=== PATIENT | male | born 1935 | race Caucasian/White ===

== ENCOUNTER 2016-05-29 01:50 | Inpatient (IN) | payer MEDICARE ==
[2016-05-29] MEDS ORDERED: IBUPROFEN 400 MG TABLET PO ONE (02:10)
[2016-05-29 02:12] LABS: BASOPHILS % 0.2 (0.0-1.5); LYMPHOCYTES # 0.6 # k/uL (0.6-4.0); MEAN CORPUSCULAR HEMOGLOBIN 32.4 pg (28.0-34.0); MONOCYTES # 0.6 # k/uL (0.0-0.9); MONOCYTES % 7.2 % (0.0-11.0); NEUTROPHILS # 6.6 # k/uL (1.4-7.7)
[2016-05-29 02:22] LABS: APPEARANCE,URINE Cloudy (CLEAR); COLOR,URINE Yellow (YELLOW); OCCULT BLOOD,URINE 2+ (NEGATIVE); UROBILINOGEN URINE 0.2 Eu (0.2-1.0)
[2016-05-29 02:26] LABS: eGFR (African) > 60; eGFR (Non-African) 52
--- NOTE | 2016-05-29 03:22 | ED Physician Documentation ---
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 falling and more confused, running fever Onset: continues in ED Duration: sudden onset Last known Well Date: 05/28/16 Last Known Well Time: 20:00 Last known Well Code/Unknown Code: Unknown Character of Altered Mental Status: confused Context: group home resident Cognition is Usually: poor alertness Gait is Usually: walks w/ assistance only Associated Symptoms: other (fever, falling) Further Comments: no - ROS EYES/ENT: none CVS/RESP: none GI/: none MS/SKIN/LYMPH: none NEURO/PSYCH: none - PAST HX Past History: dementia, other (gerdf) Other History: CHF, A-Fib, hyperlipidemia, other (bph) Surgeries/Procedures: none Immunizations: referred to PCP Allergies/Adverse Reactions: Allergies Allergy/AdvReac Type Severity Reaction Status Date / Time No Known Allergies Allergy Verified 05/29/16 02:37 Home Medications: Ambulatory Orders Medication Instructions Recorded Atorvastatin Calcium 80 mg PO HS 03/16/16 Digoxin [Lanoxin] 125 mcg PO [id number] #90 tablet 03/25/16 Pantoprazole Sodium [Protonix] 40 mg PO 0700 04/03/16 Cholecalciferol (Vitamin D3) 1,000 unit PO D 05/29/16 [Vitamin D3] Finasteride [Proscar] 5 mg PO HS 05/29/16 Fluticasone Propionate [Flovent 50 mcg IH AM 05/29/16 Diskus] Furosemide [Lasix] 40 mg PO AM 05/29/16 Haloperidol 1 mg PO AM 05/29/16 Haloperidol 1 mg PO HS 05/29/16 QUEtiapine FUMARATE [Seroquel] 25 mg PO BID 05/29/16 Selenium 50 mcg PO D 05/29/16 Tamsulosin HCl [Flomax] 0.4 mg PO HS 05/29/16 Vitamin E 400 unit PO D 05/29/16 - SOCIAL HX Smoking History: non-smoker Alcohol Use: none Drug Use: none - FAMILY HX Family History: no significant history - VITAL SIGNS Vital Signs: Vital Signs Temp Pulse Resp BP Pulse Ox 101 F H 90 18 133/67 99 05/29/16 01:58 05/29/16 01:58 05/29/16 01:58 05/29/16 01:58 05/29/16 01:58 - REVIEWED ASSESSMENTS Nursing Assessment Reviewed: Yes Vitals Reviewed: Yes Progress - Results/Orders Results/Orders: cbc, cmp, bnp, ua ordered - Progress Progress: pt. stable entire time in er Critical Care Note - Critical Care Note Total Time (mins): 0 ED Results Lab/Radiology - Lab Results Lab Results: Lab Results 05/29/16 05/29/16 05/29/16 02:15 02:05 02:04 WBC RBC Hgb Hct MCV MCH MCHC RDW Plt Count Neut % (Auto) Lymph % (Auto) [place] % (Auto) Eos % (Auto) Baso % (Auto) Neut # Lymph # [place] # Eos # Baso # Reactive Lymphs % Reactive Lymphs # Sodium 139 mmol/L mmol/L (136-145) Potassium 4.2 mmol/L mmol/L (3.5-5.0) Chloride 105 mmol/L mmol/L (98-110) Carbon Dioxide 24 mmol/L mmol/L (20-32) BUN 20 mg/dL mg/dL (10-26) Creatinine 1.4 mg/dL mg/dL (0.4-1.5) Est GFR ( Amer) > 60 (60 - ) Est GFR (Non-Af Amer) 52 L (60 - ) Glucose 108 mg/dL H mg/dL (70-99) Calcium 9.1 mg/dL mg/dL (8.5-10.5) Total Bilirubin 0.4 mg/dL mg/dL (0.2-1.2) AST 14 U/L U/L (0-41) ALT 8 U/L U/L (0-45) Alkaline Phosphatase 79 U/L U/L (46-116) NT-Pro-B Natriuret Pep 3221.3 pg/mL H pg/mL (15.0-450.0) Total Protein 7.1 g/dL g/dL (6.0-8.5) Albumin 3.5 g/dL g/dL (3.0-5.5) Urine Color Yellow (YELLOW) Urine Appearance Cloudy (CLEAR) Urine pH 6.0 (5.0 - 8.0) Ur Specific [place] 1.010 (1.010-1.030) Urine Protein 2+ mg/dL H mg/dL (NEGATIVE) Urine Ketones Negative mg/dL mg/dL (NEGATIVE) Urine Occult Blood 2+ H (NEGATIVE) Urine Nitrite Negative (NEGATIVE) Urine Bilirubin Negative (NEGATIVE) Urine Urobilinogen 0.2 Eu Eu (0.2-1.0) Ur Leukocyte Esterase 3+ H (NEGATIVE) Urine RBC 5-10 H (0-2 HPF) Urine WBC 50-99 H (0-5 HPF) Urine WBC Clumps Present H (NEGATIVE) Ur Squamous Epith Cells Few (NEG-FEW) Urine Bacteria Moderate H (NEGATIVE) Hyaline Casts 0-2 (0-2) Urine Glucose Negative mg/dL mg/dL (NEGATIVE) 05/29/16 02:04 WBC 8.10 K/ul K/ul (4.00-12.00) RBC 2.51 M/ul L M/ul (3.90-5.20) Hgb 8.1 g/dL L g/dL (12.0-18.0) Hct 25.1 % L % (37.0-53.0) MCV 100.2 fl H fl (80.0-100.0) MCH 32.4 pg pg (28.0-34.0) MCHC 32.4 g/dL g/dL (30.0-36.0) RDW 15.0 % H % (11.3-14.3) Plt Count 190 K/mm3 K/mm3 (130-400) Neut % (Auto) 81.9 % H % (39.0-79.0) Lymph % (Auto) 7.9 % L % (16.0-50.0) [place] % (Auto) 7.2 % % (0.0-11.0) Eos % (Auto) 1.0 % % (0.0-6.8) Baso % (Auto) 0.2 (0.0-1.5) Neut # 6.6 # k/uL # k/uL (1.4-7.7) Lymph # 0.6 # k/uL # k/uL (0.6-4.0) [place] # 0.6 # k/uL # k/uL (0.0-0.9) Eos # 0.1 # k/uL # k/uL (0.0-0.6) Baso # 0.0 # k/uL # k/uL (0.0-0.5) Reactive Lymphs % 1.9 % % (0.0-5.0) Reactive Lymphs # 0.2 # k/uL # k/uL (0.0-0.8) Sodium Potassium Chloride Carbon Dioxide BUN Creatinine Est GFR ( Amer) Est GFR (Non-Af Amer) Glucose Calcium Total Bilirubin AST ALT Alkaline Phosphatase NT-Pro-B Natriuret Pep Total Protein Albumin Urine Color Urine Appearance Urine pH Ur Specific [place] Urine Protein Urine Ketones Urine Occult Blood Urine Nitrite Urine Bilirubin Urine Urobilinogen Ur Leukocyte Esterase Urine RBC Urine WBC Urine WBC Clumps Ur Squamous Epith Cells Urine Bacteria Hyaline Casts Urine Glucose - Radiology Radiology Impressions: none ordered - Orders Orders: ED Orders Category Date Time Status BLOOD CULTURE Routine Lab 05/29/16 02:04 Received BNP [NT-proBNP] Routine Lab 05/29/16 02:05 Completed CBC/PLATELET/DIFF Routine Lab 05/29/16 02:04 Completed CMP Routine Lab 05/29/16 02:04 Completed URINALYSIS Routine Lab 05/29/16 02:15 Completed URINE CULTURE Routine Lab 05/29/16 02:15 Received Ibuprofen [Advil] Med 05/29/16 02:10 Discontinued 800 mg PO NOW ONE Transfer Routine Transfer 05/29/16 Ordered Altered Mental Status Physical - Physical Exam General Appearance: mild distress, other (lethargic) Neuro/Psych: none eyes open, slow to respond nml as tested Peripheral Exam: motor nml, sensation nml, reflexes nml HEENT: R[place], EOM's intact, no apparent trauma, ENT inspection nml, oropharynx nml, airway intact Neck: normal inspection, thyroid normal, supple Respiratory: no resp distress, chest non-tender, breath sounds normal CVS: equal pulses, no murmur, no gallop, PMI nml, no JVD, irregularly irregular rhy Abdomen: non-tender, no organomegaly Skin: warm/dry, normal color Extremities: non-tender, normal range of motion, no evidence of injury, edema (3 /5 le's) Discharge Clincal Impression: Sepsis secondary to UTI Home Medications: Ambulatory Orders Atorvastatin Calcium 80 mg PO HS 03/16/16 Digoxin [Lanoxin] 125 mcg PO [id number] #90 tablet 03/25/16 Pantoprazole Sodium [Protonix] 40 mg PO 0700 04/03/16 Cholecalciferol (Vitamin D3) [Vitamin D3] 1,000 unit PO D 05/29/16 Finasteride [Proscar] 5 mg PO HS 05/29/16 Fluticasone Propionate [Flovent Diskus] 50 mcg IH AM 05/29/16 Furosemide [Lasix] 40 mg PO AM 05/29/16 Haloperidol 1 mg PO AM 05/29/16 Haloperidol 1 mg PO HS 05/29/16 QUEtiapine FUMARATE [Seroquel] 25 mg PO BID 05/29/16 Selenium 50 mcg PO D 05/29/16 Tamsulosin HCl [Flomax] 0.4 mg PO HS 05/29/16 Vitamin E 400 unit PO D 05/29/16 Condition: Stable Disposition: 09 ADMITTED INPATIENT Decision to Admit: [id number] Decision Time: 02:30
[2016-05-29] MEDS ORDERED: LEVOFLOXACIN 500MG/D5W 100ML 100 ML IV ONE ×2 (03:46→14:09)
[2016-05-29] MEDS: LEVOFLOXACIN 500MG/D5W 100ML 500 MG in PREMIX BAG 1 BAG IV SCH ×2 (03:50→14:10)
[2016-05-29] MEDS: ENOXAPARIN SODIUM 30 MG/0.3 ML DISP.SYRIN SQ SCH (03:54)
[2016-05-29 04:09] VITALS: BMI 26.3
[2016-05-29] MEDS ORDERED: PANTOPRAZOLE SODIUM 40 MG TABLET ONE ×2 (04:09→19:41)
[2016-05-29] MEDS: 0.9 % SODIUM CHLORIDE 1,000 ML IV SCH ×2 (05:35→15:58)
[2016-05-29 06:18] LABS: BASOPHILS % 0.2 (0.0-1.5); EOSINOPHILS % 0.8 % (0.0-6.8); LYMPHOCYTES # 0.7 # k/uL (0.6-4.0); MEAN CORPUSCULAR HEMOGLOBIN 33.1 pg (28.0-34.0); MONOCYTES # 0.6 # k/uL (0.0-0.9); MONOCYTES % 8.3 % (0.0-11.0); NEUTROPHILS # 5.5 # k/uL (1.4-7.7)
[2016-05-29] MEDS ORDERED: PANTOPRAZOLE SODIUM 40 MG TABLET PO SCH (07:00)
[2016-05-29] MEDS: FUROSEMIDE 40 MG TABLET PO SCH (08:54)
[2016-05-29] MEDS: QUEtiapine FUMARATE 25 MG TABLET PO SCH ×2 (08:55→19:53)
[2016-05-29] MEDS ORDERED: HALOPERIDOL LACTATE 5 MG/ML VIAL IM SCH (09:00)
[2016-05-29] MEDS: BUDESONIDE 0.5MG/2ML AMPUL.NEB NEB SCH ×2 (11:16→23:47)
--- NOTE | 2016-05-29 12:42 | History and Physical Report ---
History of Present Illnes - History of Present Illness Reason for Visit: increasing confusion with fever History of Present Illness: 81yo white male with recurrent UTIs. Has had urospesis several times. Patient has had a chronic indwelling paez cath at one time but this has been removed. Patient has a. History of increasing confusion and lethargy. Patient was found to have a low fever. Initially patient was felt to have a viral infection. On the evening of admission patient developed fever up to 102. Patient was subsequently taken for further evaluation. It was felt that the patient was possibly developing another urinary tract infection. Patient was subsequently admitted to the hospital for further care and evaluation. 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 denies: Cholesterol Pneumonia Vaccine: Yes Resuscitation Status: Resusciation Status Resuscitation Status Do Not Resuscitate - Unable to Obtain History Unable to Obtain: No Review of Systems - Review of Systems Constitutional: Fever, Chills, Weakness. negative: Malaise Eyes: negative: pain, vision change ENT: negative: Ear Pain, Ear Discharge, Nose Pain, Nose Discharge, Nose Congestion, Mouth Pain, Mouth Swelling, Throat Pain, Throat Swelling Respiratory: negative: Cough, Dry, Shortness of Breath, Hemoptysis, SOB with Excertion, Pleuritic Pain, Sputum, Wheezing Cardiovascular: negative: Chest Pain, Palpitations, Orthopnea, Paroxysmal Noc. Dyspnea, Light Headedness Gastrointestinal: Nausea, Abdominal Pain (mild). negative: Vomiting, Diarrhea, Constipation, Melena, Hematochezia Genitourinary: Dysuria, Frequency, Retention (hx of). negative: Incontinence, Hematuria Musculoskeletal: Back Pain. negative: Neck Pain Skin: negative: Rash, Lesions Neurological: Weakness, Confusion (at base line). negative: Numbness, Incoordination, Change in Speech - Medications/Allergies Allergies/Adverse Reactions: Allergies Allergy/AdvReac Type Severity Reaction Status Date / Time No Known Allergies Allergy Verified 05/29/16 02:37 Home Medications: Home Medications Cholecalciferol (Vitamin D3) [Vitamin D3] 1,000 unit PO D 05/29/16 Finasteride [Proscar] 5 mg PO HS 05/29/16 Fluticasone Propionate [Flovent Diskus] 50 mcg IH AM 05/29/16 Furosemide [Lasix] 40 mg PO AM 05/29/16 Haloperidol 1 mg PO AM 05/29/16 Haloperidol 1 mg PO HS 05/29/16 QUEtiapine FUMARATE [Seroquel] 25 mg PO BID 05/29/16 Selenium 50 mcg PO D 05/29/16 Tamsulosin HCl [Flomax] 0.4 mg PO HS 05/29/16 Vitamin E 400 unit PO D 05/29/16 Current Inpatient Medications: Current Inpatient Medications Atorvastatin Calcium (Lipitor) 80 mg PO HS [facility] Budesonide (Pulmicort) 0.5 mg NEB BID [facility] Last Admin: 05/29/16 11:16 Dose: 0.5 mg Digoxin (Lanoxin) 125 mcg PO [id number] [facility] Enoxaparin Sodium (Lovenox) 30 mg SQ QD [facility] Stop: 06/11/16 03:41 Last Admin: 05/29/16 03:54 Dose: 30 mg Finasteride (Proscar) 5 mg PO HS [facility] Furosemide (Lasix) 40 mg PO AM [facility] Last Admin: 05/29/16 08:54 Dose: 40 mg Sodium Chloride (Normal Saline) 1,000 mls @ 42 mls/hr IV Q10H [facility] Last Admin: 05/29/16 05:35 Dose: Not Given Levofloxacin/Dextrose 500 mg/ (PREMIX BAG) 100 mls @ 100 mls/hr IV DAILY [facility] Last Admin: 05/29/16 03:50 Dose: 100 mls/hr Pantoprazole Sodium (Protonix) 40 mg PO ACB [facility] Quetiapine Fumarate (Seroquel) 25 mg PO BID [facility] Last Admin: 05/29/16 08:55 Dose: 25 mg Tamsulosin HCl (Flomax) 0.4 mg PO [facility] Exam - Exam Vital Signs: Vital Signs (72 hours) 05/29/16 05/29/16 05/29/16 03:40 04:20 05:00 Temperature 99.1 F Pulse Rate 91 H 91 H 78 Pulse Rate [ 91 H Left Pulse ox] Respiratory 16 Rate Blood Pressure 133/67 [Left Arm] Blood Pressure 111/53 [Right Arm] O2 Sat by Pulse 96 Oximetry 05/29/16 05/29/16 05/29/16 05:51 06:00 07:00 Temperature 98.1 F Pulse Rate 79 83 Pulse Rate [ 90 Left Pulse ox] Respiratory 18 Rate Blood Pressure [Left Arm] Blood Pressure 123/64 [Right Arm] O2 Sat by Pulse 96 Oximetry 05/29/16 08:00 Temperature Pulse Rate 83 Pulse Rate [ Left Pulse ox] Respiratory Rate Blood Pressure [Left Arm] Blood Pressure [Right Arm] O2 Sat by Pulse Oximetry General: Alert, Oriented to Person, Oriented to Place, Cooperative, Mild distress. No: Oriented to Time HEENT: Atraumatic, PERRLA, Dentition Normal, Decreased Hearing Acuity. No: Mouth Mucous membr. moist/[place], Nose Mucous membr. moist/[place] Neck: Normal Range of Motion. No: Stridor, Rigidity, Lymphadenopathy Carotids: WNL Thyroid: WNL Lungs: Clear to auscultation, Normal air movement, Speaks full Sentences. No: Respiratory Distress, Wheezes, Rales, Rhonchi Cardiovascular: Normal S1, Normal S2, Murmur (grade 2/6), Irregularly Irregular. No: Gallops, Rubs Murmur: Systolic Murmur Heart Murmur Grade: II Abdomen: Normal bowel sounds, Soft, No tenderness, No hepatospenomegaly, No masses. No: Distended Integumentary: Normal, [place], Warm, Dry Extremities: No clubbing, No cyanosis, Other (2 plus) Neurological: Normal speech, Strength Equal Bilat, Normal tone, Sensation intact , Cranial nerves 3-12 NL, Reflexes 2+ Psych/Mental Status: Mood NL. No: Mental status NL (stable at baseline), Intact Judgment - Laboratory Results Laboratory Results: Laboratory Results 05/29/16 05/29/16 06:10 06:10 WBC 7.00 RBC 2.30 L Hgb 7.6 L Hct 23.1 L MCV 100.5 H MCH 33.1 MCHC 32.9 RDW 15.0 H Plt Count 182 Neut % (Auto) 78.2 Lymph % (Auto) 10.3 L [place] % (Auto) 8.3 Eos % (Auto) 0.8 Baso % (Auto) 0.2 Neut # 5.5 Lymph # 0.7 [place] # 0.6 Eos # 0.0 Baso # 0.0 Reactive Lymphs % 2.3 Reactive Lymphs # 0.2 Sodium 137 Potassium 4.0 Chloride 107 Carbon Dioxide 24 BUN 22 Creatinine 1.6 H Estimated Creat Clear 44 Est GFR ( Amer) 53 L Est GFR (Non-Af Amer) 44 L Glucose 122 H Calcium 8.3 L Assessment/Plan - Assessment/Plan (1) Sepsis secondary to UTI Status: Acute Current Visit: Yes Assessment: patient started on antibiotic of levofloxacin, blood and urine cultures done (2) A-fib Status: Chronic Current Visit: No Qualifiers: Atrial fibrillation type: chronic Qualified Code(s): I48.2 - Chronic atrial fibrillation Comment: stable Assessment: continue home med (3) BPH (benign prostatic hyperplasia) Status: Chronic Current Visit: No Assessment: continue home med (4) Diabetes type 2, controlled Status: Acute Current Visit: No Qualifiers: Diabetes mellitus complication status: without complication 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 Qualified Code(s): E11.9 - Type 2 diabetes mellitus without complications Assessment: diet controlled, stable (5) Essential hypertension Status: Acute Current Visit: No Assessment: stable continue with home meds (6) Anemia Status: Chronic Current Visit: No Qualifiers: Anemia type: other cause Other causes of anemia: chronic disease, other Qualified Code(s): D63.8 - Anemia in other chronic diseases classified elsewhere Assessment: will monitor Hgb, 8.1 on admission, now 7.6 (7) Chronic kidney disease Status: Acute Current Visit: Yes Assessment: monitor Creatinine and BUN VTE Assessment - RISK FACTOR SCORE VTE RISK FACTOR SCORES: AGE OVER 60 YEARS, ANTICIPATED BED CONFINEMENT OR IMMOBILIZATION > 24 HOURS - RISK VTE MODERATE RISK: SCORE OF 2 (RISK PROXIMAL DVT 2-4%) PROPHYAXIS NEEDED
[2016-05-29] MEDS: DIGOXIN 125 MCG TABLET PO SCH (14:08)
[2016-05-29] MEDS ORDERED: SALINE FLUSH 10 ML DISP.SYRIN IVF ONE (16:27)
[2016-05-29] MEDS: METOPROLOL TARTRATE 50 MG TABLET PO SCH (17:21)
[2016-05-29] MEDS: FINASTERIDE 5 MG TABLET PO SCH (19:53)
[2016-05-29] MEDS: ATORVASTATIN CALCIUM 80 MG TABLET PO SCH (19:54)
[2016-05-29] MEDS: HALOPERIDOL 1 MG TABLET PO SCH (19:54)
[2016-05-29] MEDS: TAMSULOSIN HCL 0.4 MG CAP.ER.24H PO SCH (19:55)
[2016-05-29] MEDS: ACETAMINOPHEN 325 MG TABLET PO PRN (20:10)
--- NOTE | 2016-05-29 23:22 | Diagnostic Imaging Report ---
[facility] [id number] [facility].[address] [address] ~ ~ ~ ~ Report Submission Date: May 29, 2016 4:48:27 PM RN MATERNAL CHILD Patient ~ Study Name: GISSELLE LAZARO ~ Date: May 29, 2016 4:19:53 PM RN MATERNAL CHILD ~ Modality Type: CR Gender: M ~ Description: CHEST : 34 ~ Institution: [facility] Physician: SANDIE EPSTEIN ~ ~ ~ ~ Portable chest History: Tachycardia and congestive heart failure Findings: Bibasilar reticular opacities and aortic atherosclerotic calcification are observed. Heart size is normal. No significant pleural effusions are observed. Impression: Bibasilar reticular opacities may represent atelectasis, edema, or bronchitis. ~ Electronically signed on May 29, 2016 4:48:27 PM RN MATERNAL CHILD by: Segundo WHITE
[2016-05-30] MEDS: ACETAMINOPHEN 325 MG TABLET PO PRN (04:00)
[2016-05-30] MEDS: ENOXAPARIN SODIUM 30 MG/0.3 ML DISP.SYRIN SQ SCH (05:24)
[2016-05-30] MEDS: PANTOPRAZOLE SODIUM 40 MG TABLET PO SCH (05:24)
[2016-05-30 06:38] LABS: BASOPHILS % 0.3 (0.0-1.5); EOSINOPHILS % 1.1 % (0.0-6.8); LYMPHOCYTES # 0.6 # k/uL (0.6-4.0); MEAN CORPUSCULAR HEMOGLOBIN 32.8 pg (28.0-34.0); MONOCYTES # 0.5 # k/uL (0.0-0.9); MONOCYTES % 7.1 % (0.0-11.0); NEUTROPHILS # 5.7 # k/uL (1.4-7.7)
[2016-05-30] MEDS: 0.9 % SODIUM CHLORIDE 1,000 ML IV SCH ×3 (07:33→16:55)
[2016-05-30] MEDS ORDERED: ACETAMINOPHEN 325 MG TABLET PO ONE (08:28)
[2016-05-30] MEDS ORDERED: diphenhydrAMINE HCL 25 MG TABLET PO ONE (08:29)
[2016-05-30] MEDS: HALOPERIDOL 1 MG TABLET PO SCH ×2 (09:43→20:53)
[2016-05-30] MEDS: METOPROLOL TARTRATE 50 MG TABLET PO SCH ×2 (09:44→20:54)
[2016-05-30] MEDS: QUEtiapine FUMARATE 25 MG TABLET PO SCH ×2 (09:44→20:52)
[2016-05-30] MEDS: FUROSEMIDE 40 MG TABLET PO SCH (09:44)
[2016-05-30] MEDS ORDERED: LEVOFLOXACIN 500MG/D5W 100ML 100 ML IV ONE (09:46)
[2016-05-30] MEDS: LEVOFLOXACIN 500MG/D5W 100ML 500 MG in PREMIX BAG 1 BAG IV SCH (09:47)
[2016-05-30] MEDS ORDERED: 0.9 % SODIUM CHLORIDE 250 ML IV ONE (11:59)
[2016-05-30] MEDS: DIGOXIN 125 MCG TABLET PO SCH (12:08)
[2016-05-30] MEDS ORDERED: SALINE FLUSH 10 ML DISP.SYRIN IVF ONE (14:19)
[2016-05-30] MEDS: BUDESONIDE 0.5MG/2ML AMPUL.NEB NEB SCH ×2 (19:41→21:49)
[2016-05-30] MEDS: TAMSULOSIN HCL 0.4 MG CAP.ER.24H PO SCH (20:53)
[2016-05-30] MEDS: ATORVASTATIN CALCIUM 80 MG TABLET PO SCH (20:54)
[2016-05-30] MEDS: FINASTERIDE 5 MG TABLET PO SCH (20:54)
--- NOTE | 2016-05-30 22:10 | Inpatient Progress Note ---
Subjective - Required Recertification Statement I anticipate X number of days because-include discharge plan: 2 days - Review of Systems Events since last encounter: Patient had a fever up to 101.8. Patient developed a rapid ventricular response related to his atrial flutter. Patient was given metoprolol 50 mg with improvement of his rate. Patient states that at this time, he seems to be doing well. Patient does not voice any complaints. Appetite has been good. Patient denies any pain. Objective - Exam Vitals and I&O: Vital Signs Temp 98.5 F 05/30/16 14:00 Pulse 94 H 05/30/16 18:00 Resp 18 05/30/16 14:00 BP 120/60 05/30/16 14:00 Pulse Ox 97 05/30/16 15:00 Intake & Output 05/29/16 05/30/16 05/30/16 23:59 11:59 23:59 Intake Total 078 916 0581 Balance 365 786 0440 Weight 87.997 kg 87.2 kg Intake: IV 382 Left Forearm 382 Oral 50 240 1280 Other: Voiding Method Diaper Diaper # Voids 3 2 # Bowel Movements 0 General: Alert, Oriented to Person, Cooperative. No: Oriented to Place, Oriented to Time Neck: Supple, No JVD Lungs: Clear to auscultation, Normal air movement, Speaks full Sentences. No: Wheezes, Rales Cardiovascular: Irregularly Irregular Abdomen: Normal bowel sounds, Soft, No tenderness Extremities: No clubbing, No cyanosis Skin: Normal, [place], Warm, Dry Neurological: Normal gait Psych/Mental Status: No: Mental status NL (at baseline) - Results Results: Laboratory Results WBC 7.10 K/ul (4.00-12.00) 05/30/16 06:30 RBC 2.27 M/ul (3.90-5.20) L 05/30/16 06:30 Hgb 7.4 g/dL (12.0-18.0) L 05/30/16 06:30 Hct 22.5 % (37.0-53.0) L 05/30/16 06:30 MCV 99.5 fl (80.0-100.0) 05/30/16 06:30 MCH 32.8 pg (28.0-34.0) 05/30/16 06:30 MCHC 33.0 g/dL (30.0-36.0) 05/30/16 06:30 RDW 15.0 % (11.3-14.3) H 05/30/16 06:30 Plt Count 192 K/mm3 (130-400) 05/30/16 06:30 Neut % (Auto) 80.9 % (39.0-79.0) H 05/30/16 06:30 Lymph % (Auto) 8.6 % (16.0-50.0) L 05/30/16 06:30 [place] % (Auto) 7.1 % (0.0-11.0) 05/30/16 06:30 Eos % (Auto) 1.1 % (0.0-6.8) 05/30/16 06:30 Baso % (Auto) 0.3 (0.0-1.5) 05/30/16 06:30 Neut # 5.7 # k/uL (1.4-7.7) 05/30/16 06:30 Lymph # 0.6 # k/uL (0.6-4.0) 05/30/16 06:30 [place] # 0.5 # k/uL (0.0-0.9) 05/30/16 06:30 Eos # 0.1 # k/uL (0.0-0.6) 05/30/16 06:30 Baso # 0.0 # k/uL (0.0-0.5) 05/30/16 06:30 Reactive Lymphs % 2.0 % (0.0-5.0) 05/30/16 06:30 Reactive Lymphs # 0.1 # k/uL (0.0-0.8) 05/30/16 06:30 Sodium 139 mmol/L (136-145) 05/30/16 06:30 Potassium 3.5 mmol/L (3.5-5.0) 05/30/16 06:30 Chloride 106 mmol/L (98-110) 05/30/16 06:30 Carbon Dioxide 25 mmol/L (20-32) 05/30/16 06:30 BUN 21 mg/dL (10-26) 05/30/16 06:30 Creatinine 1.5 mg/dL (0.4-1.5) 05/30/16 06:30 Estimated Creat Clear 46 05/30/16 06:30 Est GFR ( Amer) 58 (60-) L 05/30/16 06:30 Est GFR (Non-Af Amer) 48 (60-) L 05/30/16 06:30 Glucose 92 mg/dL (70-99) 05/30/16 06:30 Calcium 8.6 mg/dL (8.5-10.5) 05/30/16 06:30 Total Bilirubin 0.4 mg/dL (0.2-1.2) 05/30/16 06:30 AST 13 U/L (0-41) 05/30/16 06:30 ALT 8 U/L (0-45) 05/30/16 06:30 Alkaline Phosphatase 66 U/L (46-116) 05/30/16 06:30 NT-Pro-B Natriuret Pep 3221.3 pg/mL (15.0-450.0) H 05/29/16 02:05 Total Protein 6.1 g/dL (6.0-8.5) 05/30/16 06:30 Albumin 2.9 g/dL (3.0-5.5) L 05/30/16 06:30 Urine Color Yellow (YELLOW) 05/29/16 02:15 Urine Appearance Cloudy (CLEAR) 05/29/16 02:15 Urine pH 6.0 (5.0 - 8.0) 05/29/16 02:15 Ur Specific [place] 1.010 (1.010-1.030) 05/29/16 02:15 Urine Protein 2+ mg/dL (NEGATIVE) H 05/29/16 02:15 Urine Ketones Negative mg/dL (NEGATIVE) 05/29/16 02:15 Urine Occult Blood 2+ (NEGATIVE) H 05/29/16 02:15 Urine Nitrite Negative (NEGATIVE) 05/29/16 02:15 Urine Bilirubin Negative (NEGATIVE) 05/29/16 02:15 Urine Urobilinogen 0.2 Eu (0.2-1.0) 05/29/16 02:15 Ur Leukocyte Esterase 3+ (NEGATIVE) H 05/29/16 02:15 Urine RBC 5-10 (0-2 HPF) H 05/29/16 02:15 Urine WBC 50-99 (0-5 HPF) H 05/29/16 02:15 Urine WBC Clumps Present (NEGATIVE) H 05/29/16 02:15 Ur Squamous Epith Cells Few (NEG-FEW) 05/29/16 02:15 Urine Bacteria Moderate (NEGATIVE) H 05/29/16 02:15 Hyaline Casts 0-2 (0-2) 05/29/16 02:15 Urine Glucose Negative mg/dL (NEGATIVE) 05/29/16 02:15 Assessment/Plan - Assessment/Plan (1) Sepsis secondary to UTI Status: Acute Current Visit: Yes Assessment: Awaiting urine and blood cultures at that time. We'll continue with levofloxacin. (2) A-fib Status: Chronic Current Visit: No Qualifiers: Atrial fibrillation type: chronic Qualified Code(s): I48.2 - Chronic atrial fibrillation Comment: stable Assessment: Patient's rate appears to be well maintained at this time. We'll continue to monitor. (3) Essential hypertension Status: Acute Current Visit: No (4) Anemia Status: Chronic Current Visit: No Qualifiers: Anemia type: other cause Other causes of anemia: chronic disease, other Qualified Code(s): D63.8 - Anemia in other chronic diseases classified elsewhere Assessment: Patient's hemoglobin has dropped to 7.4. We'll go ahead and transfuse 1 unit packed RBCs (5) Chronic kidney disease Status: Acute Current Visit: Yes Qualifiers: Chronic kidney disease stage: stage 4 (severe) Qualified Code(s): N18.4 - Chronic kidney disease, stage 4 (severe)
[2016-05-31] MEDS: 0.9 % SODIUM CHLORIDE 1,000 ML IV SCH ×3 (03:29→15:40)
[2016-05-31] MEDS: ENOXAPARIN SODIUM 30 MG/0.3 ML DISP.SYRIN SQ SCH (05:44)
[2016-05-31] MEDS: PANTOPRAZOLE SODIUM 40 MG TABLET PO SCH (05:46)
[2016-05-31 06:44] LABS: BASOPHILS % 0.2 (0.0-1.5); EOSINOPHILS % 1.9 % (0.0-6.8); LYMPHOCYTES # 0.6 # k/uL (0.6-4.0); MEAN CORPUSCULAR HEMOGLOBIN 33.4 pg (28.0-34.0); MONOCYTES # 0.5 # k/uL (0.0-0.9); MONOCYTES % 7.5 % (0.0-11.0); NEUTROPHILS # 5.5 # k/uL (1.4-7.7)
[2016-05-31 06:59] LABS: eGFR (African) > 60; eGFR (Non-African) 52
[2016-05-31] MEDS: BUDESONIDE 0.5MG/2ML AMPUL.NEB NEB SCH (09:00)
[2016-05-31] MEDS: METOPROLOL TARTRATE 50 MG TABLET PO SCH ×2 (09:24→21:27)
[2016-05-31] MEDS: HALOPERIDOL 1 MG TABLET PO SCH ×2 (09:24→21:26)
[2016-05-31] MEDS: FUROSEMIDE 40 MG TABLET PO SCH (09:24)
[2016-05-31] MEDS: QUEtiapine FUMARATE 25 MG TABLET PO SCH ×2 (09:25→21:26)
[2016-05-31] MEDS ORDERED: LEVOFLOXACIN 500MG/D5W 100ML 100 ML IV ONE (09:26)
[2016-05-31] MEDS: LEVOFLOXACIN 500MG/D5W 100ML 500 MG in PREMIX BAG 1 BAG IV SCH (09:27)
[2016-05-31] MEDS: DIGOXIN 125 MCG TABLET PO SCH (12:59)
--- NOTE | 2016-05-31 20:20 | Inpatient Progress Note ---
Subjective - Required Recertification Statement I anticipate X number of days because-include discharge plan: 1 day - Review of Systems Events since last encounter: Patient does seem to be doing better. Voices no complaints at this time. No pain. denies nay chest pain or pressure. No urinary symptoms. Fever to 100.8 last noc. General: Denies: Chills Cardiovascular: Denies: Chest Pain, Palpitations, Orthopnea Gastrointestinal: Denies: Nausea, Vomiting, Abdominal Pain, Diarrhea, Constipation Genitourinary: Denies: Dysuria, Frequency, Incontinence Objective - Exam Vitals and I&O: Vital Signs Temp 98.1 F 05/31/16 14:00 Pulse 78 05/31/16 18:00 Resp 16 05/31/16 14:00 BP 112/87 05/31/16 14:00 Pulse Ox 95 05/31/16 18:00 Intake & Output 05/30/16 05/31/16 05/31/16 23:59 11:59 23:59 Intake Total 2120 1864 480 Balance 2120 1864 480 Weight 87.02 kg Intake: IV 1504 Left Forearm 1504 Oral 2120 360 480 Other: Voiding Method Incontinent Incontinent # Voids 3 3 General: Alert, Oriented to Person, Oriented to Place, Cooperative. No: Oriented to Time Neck: Supple, No JVD Lungs: Clear to auscultation, Normal air movement, Speaks full Sentences. No: Wheezes, Rales, Rhonchi Cardiovascular: Regular rate, Normal S1, Normal S2, No murmurs Abdomen: Normal bowel sounds, Soft, No tenderness, No masses Extremities: Other (mild edema) Skin: Normal, Kinney, Warm, Dry Psych/Mental Status: Mental status NL (at baseline), Mood NL. No: Intact Judgment - Results Results: Laboratory Results WBC 7.00 K/ul (4.00-12.00) 05/31/16 06:15 RBC 2.64 M/ul (3.90-5.20) L 05/31/16 06:15 Hgb 8.8 g/dL (12.0-18.0) L 05/31/16 06:15 Hct 26.1 % (37.0-53.0) L 05/31/16 06:15 MCV 98.7 fl (80.0-100.0) 05/31/16 06:15 MCH 33.4 pg (28.0-34.0) 05/31/16 06:15 MCHC 33.9 g/dL (30.0-36.0) 05/31/16 06:15 RDW 15.2 % (11.3-14.3) H 05/31/16 06:15 Plt Count 209 K/mm3 (130-400) 05/31/16 06:15 Neut % (Auto) 78.6 % (39.0-79.0) 05/31/16 06:15 Lymph % (Auto) 8.9 % (16.0-50.0) L 05/31/16 06:15 Person % (Auto) 7.5 % (0.0-11.0) 05/31/16 06:15 Eos % (Auto) 1.9 % (0.0-6.8) 05/31/16 06:15 Baso % (Auto) 0.2 (0.0-1.5) 05/31/16 06:15 Neut # 5.5 # k/uL (1.4-7.7) 05/31/16 06:15 Lymph # 0.6 # k/uL (0.6-4.0) 05/31/16 06:15 Person # 0.5 # k/uL (0.0-0.9) 05/31/16 06:15 Eos # 0.1 # k/uL (0.0-0.6) 05/31/16 06:15 Baso # 0.0 # k/uL (0.0-0.5) 05/31/16 06:15 Reactive Lymphs % 2.9 % (0.0-5.0) 05/31/16 06:15 Reactive Lymphs # 0.2 # k/uL (0.0-0.8) 05/31/16 06:15 Sodium 138 mmol/L (136-145) 05/31/16 06:15 Potassium 3.4 mmol/L (3.5-5.0) L 05/31/16 06:15 Chloride 109 mmol/L (98-110) 05/31/16 06:15 Carbon Dioxide 24 mmol/L (20-32) 05/31/16 06:15 BUN 20 mg/dL (10-26) 05/31/16 06:15 Creatinine 1.4 mg/dL (0.4-1.5) 05/31/16 06:15 Estimated Creat Clear 50 05/31/16 06:15 Est GFR ( Amer) > 60 (60-) 05/31/16 06:15 Est GFR (Non-Af Amer) 52 (60-) L 05/31/16 06:15 Glucose 88 mg/dL (70-99) 05/31/16 06:15 Calcium 8.7 mg/dL (8.5-10.5) 05/31/16 06:15 Total Bilirubin 0.4 mg/dL (0.2-1.2) 05/30/16 06:30 AST 13 U/L (0-41) 05/30/16 06:30 ALT 8 U/L (0-45) 05/30/16 06:30 Alkaline Phosphatase 66 U/L (46-116) 05/30/16 06:30 NT-Pro-B Natriuret Pep 3221.3 pg/mL (15.0-450.0) H 05/29/16 02:05 Total Protein 6.1 g/dL (6.0-8.5) 05/30/16 06:30 Albumin 2.9 g/dL (3.0-5.5) L 05/30/16 06:30 Urine Color Yellow (YELLOW) 05/29/16 02:15 Urine Appearance Cloudy (CLEAR) 05/29/16 02:15 Urine pH 6.0 (5.0 - 8.0) 05/29/16 02:15 Ur Specific Offerman 1.010 (1.010-1.030) 05/29/16 02:15 Urine Protein 2+ mg/dL (NEGATIVE) H 05/29/16 02:15 Urine Ketones Negative mg/dL (NEGATIVE) 05/29/16 02:15 Urine Occult Blood 2+ (NEGATIVE) H 05/29/16 02:15 Urine Nitrite Negative (NEGATIVE) 05/29/16 02:15 Urine Bilirubin Negative (NEGATIVE) 05/29/16 02:15 Urine Urobilinogen 0.2 Eu (0.2-1.0) 05/29/16 02:15 Ur Leukocyte Esterase 3+ (NEGATIVE) H 05/29/16 02:15 Urine RBC 5-10 (0-2 HPF) H 05/29/16 02:15 Urine WBC 50-99 (0-5 HPF) H 05/29/16 02:15 Urine WBC Clumps Present (NEGATIVE) H 05/29/16 02:15 Ur Squamous Epith Cells Few (NEG-FEW) 05/29/16 02:15 Urine Bacteria Moderate (NEGATIVE) H 05/29/16 02:15 Hyaline Casts 0-2 (0-2) 05/29/16 02:15 Urine Glucose Negative mg/dL (NEGATIVE) 05/29/16 02:15 Assessment/Plan - Assessment/Plan (1) Sepsis secondary to UTI Status: Acute Current Visit: Yes Assessment: Appears to be improving at this time. Urine culture shows bacteria sensitive to Levofloxacin (2) A-fib Status: Chronic Current Visit: No Qualifiers: Atrial fibrillation type: chronic Qualified Code(s): I48.2 - Chronic atrial fibrillation Comment: stable Assessment: well controlled response a this time (3) Essential hypertension Status: Acute Current Visit: No (4) Anemia Status: Chronic Current Visit: No Qualifiers: Anemia type: other cause Other causes of anemia: chronic disease, other Qualified Code(s): D63.8 - Anemia in other chronic diseases classified elsewhere Assessment: improved with transfusion. Hgb 8.8 (5) Chronic kidney disease Status: Acute Current Visit: Yes Qualifiers: Chronic kidney disease stage: stage 4 (severe) Qualified Code(s): N18.4 - Chronic kidney disease, stage 4 (severe) Assessment: stable
[2016-05-31] MEDS: TAMSULOSIN HCL 0.4 MG CAP.ER.24H PO SCH (21:26)
[2016-05-31] MEDS: ATORVASTATIN CALCIUM 80 MG TABLET PO SCH (21:27)
[2016-05-31] MEDS: FINASTERIDE 5 MG TABLET PO SCH (21:27)
[2016-06-01] MEDS: BUDESONIDE 0.5MG/2ML AMPUL.NEB NEB SCH ×3 (01:18→08:43)
[2016-06-01] MEDS: 0.9 % SODIUM CHLORIDE 1,000 ML IV SCH ×2 (01:49→11:54)
[2016-06-01] MEDS: PANTOPRAZOLE SODIUM 40 MG TABLET PO SCH (05:46)
[2016-06-01] MEDS: ENOXAPARIN SODIUM 30 MG/0.3 ML DISP.SYRIN SQ SCH (06:11)
[2016-06-01] MEDS: FUROSEMIDE 40 MG TABLET PO SCH (11:54)
[2016-06-01] MEDS: QUEtiapine FUMARATE 25 MG TABLET PO SCH (11:54)
[2016-06-01] MEDS ORDERED: LEVOFLOXACIN 500MG/D5W 100ML 100 ML IV ONE (11:54)
[2016-06-01] MEDS: METOPROLOL TARTRATE 50 MG TABLET PO SCH (11:55)
[2016-06-01] MEDS: DIGOXIN 125 MCG TABLET PO SCH (11:55)
[2016-06-01] MEDS: LEVOFLOXACIN 500MG/D5W 100ML 500 MG in PREMIX BAG 1 BAG IV SCH (11:55)
[2016-06-01] MEDS: HALOPERIDOL 1 MG TABLET PO SCH (11:56)
--- NOTE | 2016-06-01 13:42 | Diagnostic Imaging Report ---
[facility] [id number] [facility] [address] [place], [place]. 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 Urinary urgency. TECHNIQUE: Real-time sonography of the bladder is performed in transverse and longitudinal views. Prevoid and postvoid volumes were calculated. FINDINGS: The bladder is distended on both the prevoid and postvoid images. Calculated bladder volume on the prevoid image is 1084 mL and the postvoid images is 859 mL. There is questionable irregularity of posterior bladder wall seen better on the postvoid images. Possibility of intraluminal mass cannot be excluded and direct visualization is recommended. IMPRESSION: Distended bladder with a postvoid residual of 859 mL. Questionable irregularity of the posterior wall the bladder on the postvoid study. Rule out intraluminal mass. Electronically signed on Jun 01, 2016 11:43:34 AM CARPET SEWING MACHINE OPERATOR by: Rodrigo WHITE
[2016-06-01 16:16] VITALS: BP 120/60
--- NOTE | 2016-06-14 20:56 | Discharge Summary ---
Discharge Summary - Discharge Sumary History of Present Illness: 81yo white male with recurrent UTIs. Has had urospesis several times. Patient has had a chronic indwelling paez cath at one time but this has been removed. Patient has a. History of increasing confusion and lethargy. Patient was found to have a low fever. Initially patient was felt to have a viral infection. On the evening of admission patient developed fever up to 102. Patient was subsequently taken for further evaluation. It was felt that the patient was possibly developing another urinary tract infection. Patient was subsequently admitted to the hospital for further care and evaluation. Condition at Discharge: Stable Home Medications: Ambulatory Orders Medication Instructions Recorded Atorvastatin Calcium 80 mg PO HS 03/16/16 Digoxin [Lanoxin] 125 mcg PO [id number] #90 tablet 03/25/16 Pantoprazole Sodium [Protonix] 40 mg PO 0700 04/03/16 Cholecalciferol (Vitamin D3) 1,000 unit PO D 05/29/16 [Vitamin D3] Finasteride [Proscar] 5 mg PO HS 05/29/16 Fluticasone Propionate [Flovent 50 mcg IH AM 05/29/16 Diskus] Furosemide [Lasix] 40 mg PO AM 05/29/16 Haloperidol 1 mg PO AM 05/29/16 Haloperidol 1 mg PO HS 05/29/16 QUEtiapine FUMARATE [Seroquel] 25 mg PO BID 05/29/16 Selenium 50 mcg PO D 05/29/16 Tamsulosin HCl [Flomax] 0.4 mg PO HS 05/29/16 Vitamin E 400 unit PO D 05/29/16 Acetaminophen [Tylenol] 650 mg PO Q4H PRN #0 tablet 06/01/16 Budesonide [Pulmicort] 0.5 mg NEB BID ampul.neb 06/01/16 Levofloxacin [Levaquin] 500 mg PO D #4 tablet 06/01/16 Consultations this Visit: None Procedures this Visit: None Allergies/Adverse Reactions: Allergies Allergy/AdvReac Type Severity Reaction Status Date / Time No Known Allergies Allergy Verified 05/29/16 02:37 Discharge Summary: patient was started on IV Levaquin. Patient will and it did improve with treatment of his urinary tract infection. patient does have a history of benign prostatic hypertrophy. Patient does have incomplete emptying of his bladder with voiding. Post void residual ultrasound was done and showed approximately 7- 800 cc of urine. Patient has had a indwelling Paez catheter in the past but was felt to be contributing some to his chronic recurrent UTIs. patient's diabetes mellitus remained stable during the hospitalization. Patient did not have any hyper or hypoglycemic episodes. Patient was found to be anemic. Patient was transfused 1 units of packed RBCs. Patient does have some iron deficiency. patient was transferred back [facility] in stable condition. - Final Diagnosis (1) Sepsis secondary to UTI Problems: Improved with IV Lefaquin (2) A-fib Problems: patient did have some episodes of rapid ventricular response. This was treated with metoprolol. (3) BPH (benign prostatic hyperplasia) Problems: patient does appear to be having some recent problems reported residual. Patient did have an ultrasound which showed approximately 700 cc of urine post voiding, patient does have an appointment to follow up with his urologist. (4) Diabetes type 2, controlled Problems: stable on home medications (5) Essential hypertension Problems: stable on home medications (6) Anemia Problems: patient was transfused 2 units of packed RBCs. (7) Chronic kidney disease Problems: stable
== END 2016-06-01 13:40 | disposition home or self-care (01) | DRG 872 ==
LOC: ED 01:50 → SOUTH 03:12
PROVIDERS: ADMIT Family Medicine; ATTEND Family Medicine
DX: A41.9 Sepsis, unspecified organism (principal); N39.0 Urinary tract infection, site not specified; I48.91 Unspecified atrial fibrillation; N40.1 Benign prostatic hyperplasia with lower urinary tract symptoms; E11.22 Type 2 diabetes mellitus with diabetic chronic kidney disease; I12.9 Hypertensive chronic kidney disease with stage 1 through stage 4 chronic kidney disease, or unspecified chronic kidney disease; N18.9 Chronic kidney disease, unspecified; D63.1 Anemia in chronic kidney disease
CPT/HCPCS: 36415; 51701; 71010; 76857; 80048; 80053; 81002; 83880; 85025; 86885; 86900; 86901; 86920; 87040; 87088; 87186; 93005; 94640; 94760; 99284; J1650; J1956; J7030; J7050; J7626; Q0163; 99222; 99232; 99238; P9040